=== PATIENT | female | born 1995 | race Caucasian/White ===

== ENCOUNTER → 2020-03-31 09:28 | Outpatient (BNVA) | payer OTHER, SELFPAY | PROVIDERS: Visit Provider Obstetrics & Gynecology | DX: Z34.90 Encounter for supervision of normal pregnancy, unspecified, unspecified trimester (principal) | CPT/HCPCS: 80053; 80307; 83036; 84315; 85027; 86592; 86762; 86803; 86850; 86900; 87340; 87806 ==

== ENCOUNTER → 2020-04-25 10:22 | Outpatient (BNVA) | payer OTHER, SELFPAY | PROVIDERS: Visit Provider Obstetrics & Gynecology | DX: Z34.01 Encounter for supervision of normal first pregnancy, first trimester (principal) | CPT/HCPCS: 84315; 87491; 87591; 88175 ==

== ENCOUNTER → 2020-06-06 15:49 | Outpatient (BNVA) | payer OTHER, SELFPAY | PROVIDERS: Visit Provider Obstetrics & Gynecology | DX: Z34.92 Encounter for supervision of normal pregnancy, unspecified, second trimester (principal) | CPT/HCPCS: 76805 ==

== ENCOUNTER → 2020-07-07 14:52 | Outpatient (BNVA) | payer OTHER, SELFPAY | PROVIDERS: Visit Provider Obstetrics & Gynecology | DX: Z34.02 Encounter for supervision of normal first pregnancy, second trimester (principal) | CPT/HCPCS: 82950; 84315 ==

== ENCOUNTER → 2020-08-04 13:50 | Outpatient (BNVA) | payer OTHER, SELFPAY | PROVIDERS: Visit Provider Obstetrics & Gynecology | DX: O26.892 Other specified pregnancy related conditions, second trimester; Z67.91 Unspecified blood type, Rh negative | CPT/HCPCS: 81000; 85027; 86850 ==

== ENCOUNTER → 2020-09-29 15:12 | Outpatient (BNVA) | payer OTHER, SELFPAY | PROVIDERS: Visit Provider Obstetrics & Gynecology | DX: Z34.03 Encounter for supervision of normal first pregnancy, third trimester (principal); Z67.91 Unspecified blood type, Rh negative | CPT/HCPCS: 84315; 87081 ==

== ENCOUNTER → 2020-10-18 11:24 | Outpatient (BNVA) | payer OTHER, SELFPAY | PROVIDERS: Visit Provider Obstetrics & Gynecology | DX: Z34.03 Encounter for supervision of normal first pregnancy, third trimester (principal); Z20.822 Contact with and (suspected) exposure to COVID-19 | CPT/HCPCS: 87635 ==

== ENCOUNTER 2020-10-25 16:40 | Inpatient (IN) | payer OTHER, SELFPAY ==
[2020-10-25] VITALS (11 sets, daily range): BP systolic 92–116; BP diastolic 53–64; PULSE 81–90; RESP 17; TEMP 36.3–36.5; BMI 31.7
[2020-10-25] MEDS: miSOPROStol 100 mcg tablet 25 MCG VAGINAL ×2 (18:41→22:40)
[2020-10-25 18:46] LABS: Basophils # 0.1 10^3/uL (0.0-0.1); Basophils % 0.4 %; Eosinophils # 0.3 10^3/uL (0.0-0.8); Eosinophils % 1.8 %; Hematocrit 34.3 % (37.0-47.0); Lymphocytes # 1.5 10^3/uL (0.8-4.8); Lymphocytes % 10.2 %; Mean Corpuscular HGB Conc 32.1 g/dL (30.0-36.0); Mean Corpuscular Volume 84.1 fL (81-99); Mean Platelet Volume 12.7 fL (7.4-10.4); Monocytes # 0.9 10^3/uL (0.2-0.9); Monocytes % 6.2 %; Neutrophils # 11.14 10^3/uL (1.8-7.7); Neutrophils % 77.3 %; Nucleated Red Blood Cells % 0 %; Platelet Count 168 10^3/cmm (130-400); Red Blood Count 4.08 10^6/uL (4.1-5.3); Red Cell Distribution Width 15.1 % (12.1-15.1); White Blood Count 14.4 10^3/uL (4.0-10.0)
[2020-10-26] VITALS (100 sets, daily range): BP systolic 84–133; BP diastolic 47–79; PULSE 75–116; RESP 16–19; TEMP 36.1–37.4; O2SAT 98–100
[2020-10-26] MEDS: hyDROXYzine 25 mg Capsule 50 MG PO (00:27)
[2020-10-26] MEDS: acetaminophen 325 mg Tablet 650 MG PO (00:27)
[2020-10-26] MEDS: fentaNYL 50 mcg/mL INJ 2mL IVP ×5 (02:49→07:48)
[2020-10-26] MEDS: dextrose 5%-lactated ringers 1,000 ML 125 ML IV ×2 (02:49→14:05)
[2020-10-26] MEDS: lactated ringers 1,000 ML 999 ML IV ×2 (06:50→08:00)
--- NOTE | 2020-10-26 08:00 | P.ANESASSM_ITS ---
Pre-Anesthetic Assessment Pre-Anesthetic Assessment: Height/Weight: Height 1.73 m Weight 94.801 kg Temp Pulse Resp BP Pulse Ox 97.2 F L 80 17 93/55 100 10/26/20 10:07 10/26/20 10:16 10/26/20 07:48 10/26/20 10:16 10/26/20 10:06 Preop Diagnosis: iup Proposed Procedure: epidural Familial anesthetic complications: none Was Beta Ac taken within 24 hours: N/A Was Clonidine taken within 24 hours: N/A Last intake: > 8 hrs Social: Social History: No alcohol and No tobacco Exam: Pre-Anes Outpt Exam: alert, oriented x 3, clear to auscultation bilaterally and regular rate & rhythm Airway: Cervical ROM: WNL MP: 1 Dentition: Full Anesthetic Plan: ASA status: 2 Anesthesia: Regional (specify below) Other: epidural Risk of > 500 ml blood loss (7ml/kg in children): No Meds/Allergies Current Medications: Current Medications Generic Name Dose Route Start Last Admin Trade Name Freq PRN Reason Stop Dose Admin Acetaminophen 650 mg 10/25/20 18:19 10/26/20 00:27 Acetaminophen 32 5 Mg Tablet PO 650 mg Q6H PRN Administration MILD TO MODERATE PAIN Fentanyl 25 - 100 mcg 10/25/20 18:19 10/26/20 07:48 Fentanyl 50 Mcg/ Ml Inj 2ml IVP 100 mcg Q1H PRN Administration SEVERE PAIN Hydroxyzine Pamoat e 50 mg 10/25/20 18:19 10/26/20 00:27 Hydroxyzine 25 M g Capsule PO 50 mg QID PRN Administration sleep, agitation or itching Dextrose/Lactated Ringer's 1,000 mls @ 125 m ls/hr 10/25/20 18:30 10/26/20 02:49 Dextrose 5%-Lact ated Ringers IV 125 mls/hr .Q8H TIANNA Administration Lactated Ringer's 1,000 mls @ 999 m ls/hr 10/25/20 18:19 10/26/20 08:55 Lactated Ringers IV 125 mls/hr .Q1H1M PRN Infusion Per L&D Rescitati on Protocol Ropivacaine 200 mg in 100 mls @ 13 mls/hr 10/26/20 06:00 10/26/20 08:30 Naropin Premix EPIDURAL 13 mls/hr .Q7H42M TIANNA Administration Lactated Ringer's 1,000 mls @ 999 m ls/hr 10/26/20 05:54 10/26/20 06:50 Lactated Ringers IV 999 mls/hr .Q1H1M PRN Administration See label comment s PFSH Anesthesia PFSH: Medical History No pertinent past medical history neghx:htn,dm,thyroid,dvt/pe,herpes denies past partner herpes hx Surgical History Hx of cataract surgery (~2017) L eye Family History Grandfather Diabetes Maternal Denies family history of Colon cancer Ovarian cancer Clotting disorder Heart disease Hypercholesteremia Breast cancer Bleeding disorder Hypertension Uterine cancer Thyroid disease Stroke Social History Additional social history: - Tobacco use: never Alcohol use: socially prior to Drug use: never Female Reproductive History: : 1 Data Anesthesia CBC & Chem 7: 10/25/20 17:15 Other Labs: Laboratory Results - last 48 hr 10/25/20 17:15 WBC 14.4 H RBC 4.08 L Hgb 11.0 L Hct 34.3 L MCV 84.1 MCH 27.0 L MCHC 32.1 RDW 15.1 Plt Count 168 MPV 12.7 H Neut % (Auto) 77.3 Lymph % (Auto) 10.2 [place] % (Auto) 6.2 Eos % (Auto) 1.8 Baso % (Auto) 0.4 Neut # (Auto) 11.14 H Lymph # (Auto) 1.5 [place] # (Auto) 0.9 Eos # (Auto) 0.3 Baso # (Auto) 0.1 Nucleated RBC % (auto) 0 Nucleated RBCs # 0.0 Cardiac Studies: No Data to Display
--- NOTE | 2020-10-26 10:24 | ANES.PROC ---
Anesthesia Procedures Procedure/Date: 10/26/20 Epidural: Time Out Performed: Yes Consents Signed: Procedure Consent and NPO Consent Consent: requested by attending/covering physician, from patient, risks and benefits reviewed and patient agrees to proceed Lumbar Level: L3-L4 Epidural position: sitting Epidural procedure: sterile prep of area, 1% lidocaine to numb the area, 18 g needle, negative for paresthesia passed, neg for paresthesia, test dose given, 1.5% xylocaine 1:200k epi (5 cc), 0.2% Ropivacaine bolus ml (5 cc), placed PCEA, no systemic response, sterile dressing applied, L.U.D. no apparent complications and 0.2% Ropiavacaine @ mls/hr (13)
[2020-10-26] MEDS: ondansetron 2 mg/ML SDV 2 mL 4 MG IVP (16:54)
--- NOTE | 2020-10-26 17:41 | P.PCNOB_ITS ---
Delivery Note: Date of delivery: October 26, 2020 Pre-delivery diagnoses: Term Post-delivery diagnoses: Term delivered Procedure: Spontaneous vaginal delivery Op report anesthesia: Epidural Delivering Physician: Mik Garcia MD Estimated blood loss (mL): 300 Findings: Baby girl, Apgars 8/9, weight 3785 g Pre-Delivery Course: Ms. Burger 25 y/o is a with a LMP of 01/18/2020 and QI of 10/24/2020 which places her at 40 weeks gestation on admission for elective induction, who has been receiving care from [facility]. HPI: Received appropriate care. Started with daily vitamins since start of care. labs have all been normal, including negative for HIV. She was found to negative for Group B Strep from screening at 36 weeks. She has gained approximately 20 kg throughout the . She denies a history of HTN during . Glucose tolerance screening for gestational diabetes was negative. Delivery: The patient was noted to be complete and pushing, so was placed in the dorsal lithotomy position, prepped and draped in the usual sterile fashion for a vaginal delivery. Pt. Noted to have epidural anesthesia. At 1733 the patient delivered a viable full-term female weighing 3785 g with scores of 8 and 9 at one and five minutes, respectively. The vertex was delivered spontaneously over an intact perineum. The patient was asked to push and the head delivered spontaneously in the YURIY position, over an intact perineum. A nuchal cord was checked and none noted. The anterior shoulder delivered easily and the posterior shoulder followed. The remainder of the infant was easily delivered and the oropharynx and nasopharynx was bulb suctioned. The was noted to have spontaneous cry and spontaneous movement of all four extremities. The cord was clamped x 2 and cut and noted to have 2 arteries and one vein. The was passed to the mother's abdomen where nursing personnel were in attendance. Cord blood sample was then obtained. The placenta delivered intact spontaneously and the uterus was explored. 20 units of Pitocin was placed in the IV bag to firm the uterus. Examination of the cervix and vaginal vault did not reveal any lacerations. A vaginal pack was then placed. Examination of the perineum showed no lacerations. The vaginal pack was then removed. The patient tolerated this procedure well, and recovered in L&D with her infant in her L&D room. All sponge and needle counts were correct. Post-Delivery Status: Good and stable Coding Level of Care Code Acute Epitaxial Reactor Operator for Ayden Tsai
[2020-10-26] MEDS: HYDROcodone-acetaminophen 5-325 mg Tablet PO (19:30)
[2020-10-26] MEDS: docusate sodium 100 mg Capsule PO (19:31)
[2020-10-26] MEDS: ibuprofen 800 mg tablet PO (21:04)
[2020-10-27] VITALS (12 sets, daily range): BP systolic 106–122; BP diastolic 55–72; PULSE 77–92; RESP 16–17; TEMP 36.1–36.8; O2SAT 99
[2020-10-27 06:02] LABS: Hematocrit 30.8 % (37.0-47.0); Hemoglobin 9.9 g/dL (11.5-15.3); Mean Corpuscular HGB Conc 32.1 g/dL (30.0-36.0); Mean Corpuscular Hemoglobin 27.1 pg (28.0-34.0); Mean Corpuscular Volume 84.4 fL (81-99); Mean Platelet Volume 12.3 fL (7.4-10.4); Platelet Count 152 10^3/cmm (130-400); Red Blood Count 3.65 10^6/uL (4.1-5.3)
[2020-10-27] MEDS: docusate sodium 100 mg Capsule PO (09:32)
[2020-10-27] MEDS: ibuprofen 800 mg tablet PO ×2 (09:32→16:31)
[2020-10-27] MEDS: prenatal vitamin Capsule 1 CAP PO (09:32)
--- NOTE | 2020-10-27 16:02 | PM.OBGYDC ---
Discharge Providers STUNNER ANIMAL Date of Admission: 10/25/20 16:40 Date of Discharge: 10/27/20 Attending Provider at Admission: Mik Garcia MD Attending Provider at Discharge: Mik Garcia MD Diagnoses at Discharge Discharge Diagnosis (1) Rh negative status during in second trimester, antepartum: Status: Acute (2) , supervision, normal, first: Status: Acute Qualifiers: Trimester: third trimester Qualified Code(s): Z34.03 - Encounter for supervision of normal first , third trimester Reason for Visit Reason for Visit: POST BOB INDUCTION Hospital Course Hospital Course Ms. Burger 25 y/o is a with a LMP of 01/18/2020 and QI of 10/24/2020 which places her at 40 weeks gestation on admission for elective induction, who has been receiving care from [facility] [place] [facility]. Received appropriate care. Started with daily vitamins since start of care. labs have all been normal, including negative for HIV. She was found to negative for Group B Strep from screening at 36 weeks. She has gained approximately 20 kg throughout the . She denies a history of HTN during . Glucose tolerance screening for gestational diabetes was negative. She progressed to have a spontaneous vaginal delivery with epidural anesthesia. She delivered a viable full-term female weighing 3785 g with scores of 8 and 9. recovery has been uneventful. Tolerating diet well. Ambulating without difficulty. Urine output adequate. Breast-feeding without problems. She plans to start using progesterone only contraceptive pill to continue breast-feeding. Information Peripartum Data: Delivery Method: Vaginal Physical Exam Narrative: EXAM NARRATIVE: GA; alert and oriented x 3 HEENT: normal Breasts: engorged Nipples - skin intact Lungs; clear to auscultation Heart: regular rhythm, no murmurs. Abd: Appropriately tender. BS+. Uterine fundus below umbilicus. No Fundal Tenderness. Perineum: normal lochia. Extremities: no edema, no cyanosis, no tenderness. Urinary Catheter Management^: Guillen: Cath Placed During This Visit: yes, but has since been removed by the nurse Reason for Continuing Indwelling Catheter: Decision to DC Catheter Urinary Catheter Date of Insertion: 10/26/20 Urinary Catheter Time of Insertion: 08:39 Date Urinary Catheter Removed: 10/26/20 Time Urinary Catheter Discontinued: 14:10 Discharge Data Data Completed and Pending: Pending at discharge Category Date Time Status Complete Crossmat ch Routine Lab 10/25/20 17:15 Results Rho D Immune Glob ulin Routine Lab 10/25/20 17:15 Results Type and Screen R outine Lab 10/25/20 17:15 Results Labs from last 24 hours 10/27/20 10/27/20 10/25/20 05:30 05:30 17:15 WBC 17.0 H RBC 3.65 L Hgb 9.9 L Hct 30.8 L MCV 84.4 MCH 27.1 L MCHC 32.1 RDW 15.0 Plt Count 152 MPV 12.3 H Blood Type O Negative Rho(D) Type Negative / 0 Antibody Screen Negative Antibody Identific ation Cancelled Screen Negative Cancelled Vitals: Last Vital Signs Temp 97.9 F 10/27/20 09:31 Pulse 80 10/27/20 11:40 Resp 17 10/27/20 09:35 BP 120/68 10/27/20 11:40 Pulse Ox 100 10/26/20 10:06 Discharge Plan Discharge Patient Disposition: Home Condition: Stable Prescriptions: New acetaminophen 325 mg capsule 325 mg PO Q4H PRN (Reason: fever or pain) Qty: 60 RF: 0 ibuprofen 800 mg tablet 800 mg PO TID PRN (Reason: pain) Qty: 60 RF: 0 docusate sodium [Colace] 100 mg capsule 100 mg PO BID Qty: 60 RF: 0 Continued prenat.vits,caleb,cxa-urqt-vczhi Tablet 1 tab PO DAILY RF: 0 ferrous sulfate 325 mg (65 mg iron) tablet 325 mg PO DAILY RF: 0 Discharge Orders: Discharge Order (Routine); Ordered 10/27/20 Ordered By: Mik Garcia Referrals: Mik Garcia MD [Physician] - 6 Weeks Discharge Diet: Usual diet Discharge Activity: Increase activity as tolerated Patient Instructions: Opioid Safety, Vaginal Delivery (DC), Vaginal Delivery (GEN) Activity Restrictions/Additional Instructions: 1. Please call [facility] [place] [facility] on next working day to make your appointment in 6 weeks. 2. Please stay home until you come back to the clinic on first post-operative check up. 3. Please follow instructions on your medications CAREFULLY. 4. If you have abdominal incision, do not cover it unless dressing is necessary because of drainage. OK to shower, but avoid bath. Leave steri-strips until they fall off. If they are still on one week after surgery, you may remove them. 5. If you had vaginal surgery or vaginal repair, Dr. Garcia may instruct you to take SITZ bath. 6. Yellow, blood tinged odorous vaginal discharge is usually normal after hysterectomy or vaginal surgeries. 7. No sexual intercourse, tampons, or douches until you are completely released from the post-operative care. 8. Avoid constipation by eating right and maybe using some Metamucil or Milk of Magnesia. 9. All prescription refills are given during the working hours. Please do no wait till it runs out. Call the clinic at [phone] before your medication runs out. The clinic will get in touch with your doctor to prescribe medications if necessary. 10. Please remain within 40 mile radius from our hospital because emergencies do happen now and then during the post-operative period. 11. If you have stairs at home, take one step at a time slowly and minimize the number of trips. It helps to stay in one floor for the next few days. No lifting except what you can lift by one hand until you are released from the post-operative care. 12. Driving is discouraged until you are well healed. It may be 3-4 weeks before you feel strong enough to drive. You should be able to turn and look through the rear window without pain and you should be able to push the brake pedal very hard without pain before you drive. No fast rules, but SAFETY should be your primary concern. DO NOT drive if you are on sedating medications such as narcotics. 13. Call the clinic (during working hours) to make urgent appointment or go to the Emergency room, if any of the following occurs: i. Vaginal bleeding becomes heavy, more than a period. ii. Incision becomes red and sore, or drains pus. iii. Your temperature is over 100.4 or you have chill. iv. IV site becomes red and swollen (a little ``knot?? is usually OK) v. Persistent nausea and vomiting vi. Persistent constipation or diarrhea vii. Rash or allergic reaction to medications. Discharge Attestations STUNNER ANIMAL Time Spent in Discharge Care*: greater than 30 min Coding Level of Care Code Acute [employer] Tin Roller for Chg Fwd Diagnoses Rh negative status during in second trimester, antepartum O26.892; Z67.91 , supervision, normal, first Z34.03 Trimester: third trimester
== END 2020-10-27 19:30 | disposition home or self-care (01) | DRG 807 ==
PROVIDERS: Admitting Provider Obstetrics & Gynecology; Visit Provider Obstetrics & Gynecology
DX: O36.0930 Maternal care for other rhesus isoimmunization, third trimester, not applicable or unspecified (principal); Z37.0 Single live birth; Z3A.40 40 weeks gestation of pregnancy
CPT/HCPCS: 36415; 36430; 51702; 59025; 59409; 80048; 85025; 85027; 85460; 86850; 86900; 90384; J2405; J2795; J3010

== ENCOUNTER → 2021-12-18 10:46 | Outpatient (BNVA) | payer OTHER, BC, SELFPAY | PROVIDERS: PCP Nurse Practitioner Family; Visit Provider Obstetrics & Gynecology | DX: N89.8 Other specified noninflammatory disorders of vagina (principal); N73.0 Acute parametritis and pelvic cellulitis; Z01.419 Encounter for gynecological examination (general) (routine) without abnormal findings; N73.9 Female pelvic inflammatory disease, unspecified | CPT/HCPCS: 87491; 87591 ==

== ENCOUNTER → 2023-02-26 08:42 | Outpatient (BNVA) | payer BC, SELFPAY | PROVIDERS: PCP Nurse Practitioner Family; Visit Provider Nurse Practitioner Women's Health | DX: Z36.87 Encounter for antenatal screening for uncertain dates (principal) | CPT/HCPCS: 76801 ==

== ENCOUNTER → 2023-03-21 15:27 | Outpatient (BNVA) | payer BC, SELFPAY | PROVIDERS: PCP Nurse Practitioner Family; Visit Provider Obstetrics & Gynecology | DX: Z34.80 Encounter for supervision of other normal pregnancy, unspecified trimester (principal); Z67.91 Unspecified blood type, Rh negative; E04.1 Nontoxic single thyroid nodule | CPT/HCPCS: 80307; 84315; 85027; 86592; 86762; 86803; 86850; 86900; 87086; 87340; 87491; 87591; 87806; 88175 ==

== ENCOUNTER → 2023-05-21 09:23 | Outpatient (BNVA) | payer BC, SELFPAY | PROVIDERS: PCP Nurse Practitioner Family; Visit Provider Obstetrics & Gynecology | DX: Z34.80 Encounter for supervision of other normal pregnancy, unspecified trimester (principal) | CPT/HCPCS: 76805 ==

== ENCOUNTER → 2023-06-17 13:21 | Outpatient (BNVA) | payer SELFPAY | PROVIDERS: PCP Nurse Practitioner Family; Visit Provider Nurse Practitioner Women's Health | DX: Z34.80 Encounter for supervision of other normal pregnancy, unspecified trimester (principal) | CPT/HCPCS: 76816; 82950; 84315 ==

== ENCOUNTER → 2023-07-14 11:16 | Outpatient (BNVA) | payer SELFPAY | PROVIDERS: PCP Nurse Practitioner Family; Visit Provider Obstetrics & Gynecology | DX: Z34.80 Encounter for supervision of other normal pregnancy, unspecified trimester (principal); G90.A Postural orthostatic tachycardia syndrome [POTS]; Z67.91 Unspecified blood type, Rh negative | CPT/HCPCS: 84315; 85025; 86850 ==

== ENCOUNTER → 2023-08-26 08:36 | Outpatient (BNVA) | payer BC, SELFPAY | PROVIDERS: PCP Nurse Practitioner Family; Visit Provider Nurse Practitioner Women's Health | DX: Z34.80 Encounter for supervision of other normal pregnancy, unspecified trimester (principal) | CPT/HCPCS: 84315; 87086 ==

== ENCOUNTER → 2023-09-09 09:40 | Outpatient (BNVA) | payer BC, SELFPAY | PROVIDERS: PCP Nurse Practitioner Family; Visit Provider Nurse Practitioner Women's Health | DX: Z34.83 Encounter for supervision of other normal pregnancy, third trimester (principal) | CPT/HCPCS: 76816 ==

== ENCOUNTER → 2023-09-12 08:51 | Outpatient (BNVA) | payer BC, SELFPAY | PROVIDERS: PCP Nurse Practitioner Family; Visit Provider Obstetrics & Gynecology | DX: Z34.80 Encounter for supervision of other normal pregnancy, unspecified trimester (principal) | CPT/HCPCS: 84315; 87081 ==

== ENCOUNTER 2023-10-06 03:11 | Inpatient (IN) | payer BC, SELFPAY ==
[2023-10-05] VITALS (43 sets, daily range): BP systolic 92–133; BP diastolic 50–77; PULSE 83–104; RESP 20; TEMP 35.7–35.8; O2SAT 100; BMI 31.0
[2023-10-05 18:51] LABS: Basophils # 0.1 10^3/uL (0.0-0.1); Basophils % 0.4 %; Eosinophils # 0.2 10^3/uL (0.0-0.8); Eosinophils % 1.2 %; Hematocrit 31.5 % (36-47); Lymphocytes # 1.8 10^3/uL (0.8-4.8); Lymphocytes % 12.6 %; Mean Corpuscular HGB Conc 30.8 g/dL (30-55); Mean Corpuscular Hemoglobin 23.5 pg (27-33); Mean Corpuscular Volume 76.3 fl (85-98); Mean Platelet Volume 11.3 fL (7.4-10.4); Monocytes % 6.9 %; Neutrophils % 74.5 %; Nucleated Red Blood Cells % 0.3 %; Platelet Count 169 10^3/cmm (157-399); Red Blood Count 4.13 10^6/uL (3.85-5.65); Red Cell Distribution Width 17.5 % (12.1-15.1); White Blood Count 14.21 10^3/uL (3.29-11.43)
[2023-10-05] MEDS: fentaNYL 50 mcg/mL INJ 2mL IVP (18:54)
[2023-10-05] MEDS: lactated ringers 1,000 ML 999 ML IV ×2 (19:05→20:03)
--- NOTE | 2023-10-05 20:06 | P.ANESASSM_ITS ---
Pre-Anesthetic Assessment Height/Weight: Height 1.73 m Weight 92.533 kg Temp Pulse Resp BP Pulse Ox O2 Del Method 96.4 F L 94 20 H 131/73 100 Room Air 10/05/23 19:28 10/05/23 20:02 10/05/23 18:54 10/05/23 20:00 10/05/23 20:02 10/05/23 19:21 Preop Diagnosis: labor pain epidural Was Beta Ac taken within 24 hours: N/A Was Clonidine taken within 24 hours: N/A Exam alert, oriented x 3, clear to auscultation bilaterally and regular rate & rhythm Airway Submandibular: within normal limits Cervical ROM: within normal limits Mallampati: Class II Dentition: full Pulmonary None reported CV/HEM None reported None reported Hepatic None reported GI Gastroesophageal Reflux Disease Metabolic None reported Musc/skel None reported Neuropsych None reported Anesthetic Plan ASA status: 2 Anesthesia: Regional (specify below) Risk of > 500 ml blood loss (7ml/kg in children): No Medications/Allergies Home Medications Medication Instructions Recorded Confirmed Last Taken Type prenat.vits,caleb,sjn-qych-pklgl 1 tab PO DAILY 02/19/23 10/05/23 1 Day Ago History ~10/04/23 Allergies Allergy/AdvReac Type Severity Reaction Status Date / Time No Known Allergies Allergy Verified 10/05/23 18:27 Current Medications Generic Name Dose Route Start Last Admin Trade Name Freq PRN Reason Stop Dose Admin Fentanyl 25 - 100 mcg 10/05/23 18:39 10/05/23 18:54 Fentanyl 50 Mcg/Ml Inj 2ml IVP 25 mcg Q1H PRN Administration SEVERE PAIN Lactated Ringer's 1,000 mls @ 999 mls/hr 10/05/23 18:41 10/05/23 20:03 Lactated Ringers IV 999 mls/hr .Q1H1M PRN Administration See label comments PFSH Anesthesia Medical History POTS (postural orthostatic tachycardia syndrome) No pertinent past medical history neghx:htn,dm,thyroid,dvt/pe,herpes denies past partner herpes hx Surgical History Hx of cataract surgery (~2016) L eye Family History Grandfather Diabetes Maternal Denies family history of Colon cancer Ovarian cancer Clotting disorder Heart disease Hypercholesteremia Breast cancer Bleeding disorder Hypertension Uterine cancer Thyroid disease Stroke Female Reproductive History : 2 Data Anesthesia 10/05/23 18:35 Short CBC 10/05/23 Range/Units 18:35 WBC 14.21 H (3.29-11.43) 10^3/uL Hgb 9.70 L (11.27-16.99) g/dL Hct 31.5 L (36-47) % MCV 76.3 L (85-98) fl Plt Count 169 (157-399) 10^3/cmm Neut % (Auto) 74.5 % Neut # (Auto) 10.60 H (1.8-7.7) 10^3/uL Blood Bank 10/05/23 18:35 Blood Type O Negative Rho(D) Type Rh negative Cardiac Studies: 2 No Data to Display
[2023-10-05] MEDS: ROPivacaine premix 200 MG/100 ML PREMIX 10 MG EPIDURAL (20:30)
--- NOTE | 2023-10-05 20:39 | P.ANES_ITS ---
Anesthesia Procedures Procedure/Date: 10/05/23 epidural Procedure Narrative: epidural complete, bolus given, epidural pump initiated with OPERATIONS SUPPORT COORDINATOR education given, vitals taken during procedure and satisfactory throughout, patient admits to decrease pain, report of procedure to OB RN Epidural: Time Out Performed: Yes Consents Signed: Procedure Consent Consent: requested by attending/covering physician, from patient, risks and benefits reviewed and patient agrees to proceed Lumbar Level: L3-L4 Ep idural position: sitting Epidural procedure: sterile prep of area, 1% lidocaine to numb the area (3 mL), 18 g needle, negative for paresthesia passed, neg for paresthesia, test dose given, 1.5% xylocaine 1:200k epi (5 mL), 0.2% Ropivacaine bolus ml (5 mL), placed PCEA, no systemic response, sterile dressing applied, L.U.D. no apparent complications and 0.2% Ropiavacaine @ mls/hr (13 mL/hr)
[2023-10-05] MEDS: dextrose 5%-lactated ringers 1,000 ML 125 ML IV (21:16)
[2023-10-06] VITALS (63 sets, daily range): BP systolic 99–200; BP diastolic 53–126; PULSE 83–147; RESP 18; TEMP 36–36.9; O2SAT 77–98
[2023-10-06] MEDS: ondansetron 2 mg/ML SDV 2 mL 4 MG IVP (01:29)
[2023-10-06] MEDS: ROPivacaine premix 200 MG/100 ML PREMIX 10 MG EPIDURAL (01:51)
[2023-10-06] MEDS: oxytocin 30 UNIT/500 ML BAG 600 UNIT IV (03:42)
--- NOTE | 2023-10-06 04:05 | P.HP_ITS ---
Providers/Chief Complaint 2 Admitting Physician: Mp Anderson MD Primary RANGE ECOLOGIST: Mik Garcia MD Primary Care Provider: DIANA Mancilla Chief Complaint: Ctx HPI RANGE ECOLOGIST History of Present Illness Eufemia Burger is a 28 year old female G2 P EDC October 04, 2023 at 40 w 1 d presented with painful regular uterine contractions no bleeding or fluid leakage + active movements Present Details : 2 Para: 1 Labs Rubella: Immune RPR: Negative GBS: Negative Medications/Allergies Home Medications Medication Instructions Recorded Confirmed Last Taken Type prenat.vits,caleb,dxj-mnjp-axbia 1 tab PO DAILY 02/19/23 10/05/23 1 Day Ago History ~10/04/23 Allergies Allergy/AdvReac Type Severity Reaction Status Date / Time No Known Allergies Allergy Verified 10/05/23 18:27 PFSH RANGE ECOLOGIST 2 PFSH: Medical History POTS (postural orthostatic tachycardia syndrome) No pertinent past medical history neghx:htn,dm,thyroid,dvt/pe,herpes denies past partner herpes hx Surgical History Hx of cataract surgery (~2016) L eye Family History Grandfather Diabetes Maternal Denies family history of Colon cancer Ovarian cancer Clotting disorder Heart disease Hypercholesteremia Breast cancer Bleeding disorder Hypertension Uterine cancer Thyroid disease Stroke Other Female Reproductive History: Hx Age of Menarche: 13 History History History 2 2 Term 1 0 Miscarriages/Ectopic 0 Living Children 1 Care QI Calculator 2 Estimated Delivery Date Method Current WG Current Estimate 10/04/23 LMP (Certain) 40w 2d Other Estimates 10/04/23 Ultrasound #1 40w 2d Specific Issues/Plans * RH NEGATIVE ---Rhogam given 07/28/2023 per Dorene CASIANO * POTS Vitals/I&O/Wt Last Vital Signs Temp 97.0 F L 10/06/23 03:47 Pulse 139 H 10/06/23 04:06 Resp 20 H 10/05/23 18:54 BP 123/56 10/06/23 04:03 Pulse Ox 91 10/06/23 04:06 O2 Del Method Room Air 10/05/23 19:21 10/05/23 10/05/23 10/06/23 14:59 22:59 06:59 Intake Total 965.7 / 965.7 100 / 1065.7 Balance 965.7 / 965.7 100 / 1065.7 Weight last 48 hrs Weight 204 lb Physical Exam 2 Narrative: awake, alert VS normal Lungs: clear Cor: RRR Abd: soft Cervix: 3-4 cm / 100 / -2 / posterior Ext: normal External monitor: regular UCs heart tracing good variability, + accelerations Urinary Catheter Management: Guillen: Cath Placed During This Visit: yes Urinary Catheter Date of Insertion: 10/05/23 Urinary Catheter Time of Insertion: 21:05 Data 10/05/23 18:35 Results Labs OB ([facility]): 2 Obstetrics 09/09/23 Blood Type O Negative 10/05/23 Antibody Screen Negative 10/05/23 Hct 31.5 % (36-47) L 10/05/23 Hgb 9.70 g/dL (11.27-16.99) L 10/05/23 Rho(D) Type Rh negative 10/05/23 Plt Count 169 10^3/cmm (157-399) 10/05/23 Hep Bs Antigen Non-reactive (Nonreactive) 03/21/23 Hepatitis C Antibody Non-reactive (Nonreactive) 03/21/23 Rubella IgG Antibody 22.0 IU/mL (0.0-10.0) H 03/21/23 RPR Nonreactive (Nonreactive) 03/21/23 HIV 1&2 Ab & HIV 1 Ag Non-reactive (Non-Reactiv) 03/21/23 C.trachomatis RNA (TMA) Not detected (NOT DETECTED) N.gonorrhoeae RNA (TMA) Not detected (NOT DETECTED) T. vaginalis Amp RNA Not detected (NOT DETECTED) 03/21/23 Chlamydia/GC Comment See note 03/21/23 Cystic Fibrosis Screen Negative 04/25/20 Glucose 1 Hr 50 gm 130 mg/dL (85-140) 07/07/20 Gest Glucose Tolerance 120 mg/dL (70-139) 06/17/23 Hemoglobin A1c 4.9 % (4.0-6.0) 03/31/20 Urine Opiates Screen Negative ng/mL (Negative) 03/21/23 Ur Barbiturates Screen Negative ng/mL (Negative) 03/21/23 Ur Phencyclidine Scrn Negative ng/mL (Negative) 03/21/23 Ur Amphetamines Screen Negative ng/mL (Negative) 03/21/23 U Benzodiazepines Scrn Negative ng/mL (Negative) 03/21/23 Urine Cocaine Screen Negative ng/mL (Negative) 03/21/23 U Marijuana (THC) Screen Negative ng/mL (Negative) 03/21/23 Micro Urine Specimen 08/26/23 Pap Smear Interpret See note 03/21/23 A&P Assessment and plan (1) Supervision of other normal : 40 w 1 d active labor fetus reassuring plan admit expectant management GBS negative (2) Rh D negative blood type: Attestations 2 Medical Necessity Statement*: patient at 40 w 1 d, with active labor Coding Level of Care Code Acute Code for Chg Fwd Diagnoses Supervision of other normal Z34.80 Rh D negative blood type Z67.91 Time Spent (min) 30
--- NOTE | 2023-10-06 04:15 | PM.DELIVERY ---
Delivery Note: Date of delivery: October 06, 2023 Pre-delivery diagnoses: 40 w 1 d active labor Post-delivery diagnoses: 40 w 1 d active labor vaginal delivery Procedure: vaginal delivery Op report anesthesia: Epidural Delivering Physician: Mp Anderson MD Estimated blood loss (mL): 300 Findings: , vigorous male infant normal placenta and cord cord gases and blood obtained no episiotomy / lacerations EBL: 300 cc no complications Pre-Delivery Course: normal labor course Delivery: vaginal Post-Delivery Status: good History History History 2 Term 1 0 Miscarriages/Ectopic 0 Living Children 1 A&P Assessment and plan (1) Vaginal delivery: Coding Level of Care Code Acute Code for Chg Fwd Diagnoses Vaginal delivery O80 Time Spent (min) 60
[2023-10-06] MEDS: acetaminophen 325 mg Tablet 650 MG PO (05:20)
[2023-10-06] MEDS: ibuprofen 800 mg tablet PO ×2 (10:17→15:09)
[2023-10-06] MEDS: docusate sodium 100 mg Capsule PO (10:17)
[2023-10-06] MEDS: PRENATAL VIT NO.130/IRON/FOLIC 1 EACH TABLET PO (10:17)
--- NOTE | 2023-10-06 12:39 | ANE.PACU2 ---
Inpatient post-anesthesia follow up: Airway intact: Yes Vital signs: Temperature 97.3 F Pulse Rate 93 Respiratory Rate 20 Blood Pressure 120/61 Pulse Oximetry 87 Oxygen Delivery Me thod Room Air Oxygen Flow Rate Fraction of Inspir ed Oxygen Hydration adequate: Yes Nausea and vomiting: No Pain level: 1 Mental status: Baseline Epidural Start/End: Epidural Start Date: 10/05/23 Epidural Start Time: 20:21 Epidural End Date: 10/06/23 Epidural End Time: 05:42
--- NOTE | 2023-10-06 12:45 | P.PN_ITS ---
CALENDERER Subjective 2 Subjective: Interval history: Baby is being transferred to [place] for respiratory problems Patient would like to be discharged to go with baby no c/o no bleeding, pain eating, voiding, ambulating well caring for without any problems Labor: Station: +1 Amniotic Membrane Status: Ruptured Monitor Mode: External Contraction Pattern: Regular Vitals/I&O/Wt Last Vital Signs Temp 98.0 F 10/06/23 16:00 Pulse 85 10/06/23 16:00 Resp 18 10/06/23 16:00 BP 117/74 10/06/23 16:00 Pulse Ox 98 10/06/23 16:00 O2 Del Method Room Air 10/06/23 16:00 Physical Exam 2 Narrative: afebrile, VS normal comfortable, awake, alert Abd: soft, nontender. fundus firm Ext: no edema; nontender Urinary Catheter Management: Guillen: Cath Placed During This Visit: yes, but has since been removed by the nurse Reason for Continuing Indwelling Catheter: Decision to DC Catheter Urinary Catheter Date of Insertion: 10/05/23 Urinary Catheter Time of Insertion: 21:05 Date Urinary Catheter Removed: 10/06/23 Time Urinary Catheter Discontinued: 03:14 Data 10/06/23 13:25 A&P Assessment and plan (1) Vaginal delivery: PPD #0 doing well discharge to home today instructions and precautions given call/return if fever, chills, headache, blurry vision, nausea, vomiting, abdominal pain; vaginal bleeding or discharge; shortness of breath, chest pain, leg pains or swelling; inability to void, perineal pain or swelling; feelings of depression or mood changes; thoughts of suicide or harming others; inability to care for baby. f/u in 6 weeks or PRN Attestations 2 Medical Necessity Statement*: patient s/p vaginal delivery, plan discharge to home today Coding Level of Care Code Acute Code for Chg Fwd Diagnoses Vaginal delivery O80 Time Spent (min) 20
--- NOTE | 2023-10-06 12:50 | PM.OBGYDC ---
Discharge Providers MEDICAL GENETICIST Date of Admission: 10/06/23 03:11 Date of Discharge: 10/06/23 Attending Provider at Admission: Mp Anderson MD Attending Provider at Discharge: Mp Anderson MD Consults: none Primary MEDICAL GENETICIST: Mik Garcia MD Primary Care Provider: DIANA Mancilla Diagnoses at Discharge Discharge Diagnosis (1) Vaginal delivery: Details from hospital stay: 28 y.o. at 40 w 1 d presented with active labor normal labor course with heart tracing reassuring throughout patient delivered vaginally without any complications Baby was transferred to [place] for respiratory difficulties patient requested to be discharged to be with baby patient was discharged to home on October 06, 2023 Status: Acute Reason for Visit Reason for Visit: Ctx Brief History: 28 y.o. at 40 w 1 d presented with active labor Hospital Course Hospital Course 28 y.o. at 40 w 1 d presented with active labor normal labor course with heart tracing reassuring throughout patient delivered vaginally without any complications Baby was transferred to [place] for respiratory difficulties patient requested to be discharged to be with baby patient was discharged to home on October 06, 2023 Information Peripartum Data: Delivery Method: Vaginal Laceration description: None Episiotomy description: None complications: none Physical Exam Narrative: afebrile, VS normal comfortable, awake, alert Abd: soft, nontender. fundus firm Ext: no edema; nontender Urinary Catheter Management: Guillen: Cath Placed During This Visit: yes, but has since been removed by the nurse Reason for Continuing Indwelling Catheter: Decision to DC Catheter Urinary Catheter Date of Insertion: 10/05/23 Urinary Catheter Time of Insertion: 21:05 Date Urinary Catheter Removed: 10/06/23 Time Urinary Catheter Discontinued: 03:14 History History History 2 Term 1 0 Miscarriages/Ectopic 0 Living Children 1 Discharge Data Studies Completed and Pending Laboratory Results WBC 17.01 10^3/uL (3.29-11.43) H 10/06/23 13:25 RBC 3.76 10^6/uL (3.85-5.65) L 10/06/23 13:25 Hgb 8.60 g/dL (11.27-16.99) L 10/06/23 13:25 Hct 28.7 % (36-47) L 10/06/23 13:25 MCV 76.3 fl (85-98) L 10/06/23 13:25 MCH 22.9 pg (27-33) L 10/06/23 13:25 MCHC 30.0 g/dL (30-55) 10/06/23 13:25 RDW 17.5 % (12.1-15.1) H 10/06/23 13:25 Plt Count 155 10^3/cmm (157-399) L 10/06/23 13:25 MPV 11.0 fL (7.4-10.4) H 10/06/23 13:25 Neut % (Auto) 74.5 % 10/05/23 18:35 Lymph % (Auto) 12.6 % 10/05/23 18:35 [place] % (Auto) 6.9 % 10/05/23 18:35 Eos % (Auto) 1.2 % 10/05/23 18:35 Baso % (Auto) 0.4 % 10/05/23 18:35 Neut # (Auto) 10.60 10^3/uL (1.8-7.7) H 10/05/23 18:35 Lymph # (Auto) 1.8 10^3/uL (0.8-4.8) 10/05/23 18:35 [place] # (Auto) 1.0 10^3/uL (0.2-0.9) H 10/05/23 18:35 Eos # (Auto) 0.2 10^3/uL (0.0-0.8) 10/05/23 18:35 Baso # (Auto) 0.1 10^3/uL (0.0-0.1) 10/05/23 18:35 Nucleated RBC % (auto) 0.3 % 10/05/23 18:35 Nucleated RBCs # 0.0 /100WBC 10/05/23 18:35 Blood Type O Negative 10/05/23 18:35 Rho(D) Type Rh negative 10/05/23 18:35 Antibody Screen Negative 10/05/23 18:35 Screen Negative (Negative) 10/06/23 13:25 Procedures Performed vaginal delivery Vitals Last Vital Signs Temp 98.0 F 10/06/23 16:00 Pulse 85 10/06/23 16:00 Resp 18 10/06/23 16:00 BP 117/74 10/06/23 16:00 Pulse Ox 98 10/06/23 16:00 O2 Del Method Room Air 10/06/23 16:00 Results Labs OB ([facility]): Obstetrics US 09/09/23 Blood Type O Negative 10/05/23 Antibody Screen Negative 10/05/23 Hct 28.7 % (36-47) L 10/06/23 Hgb 8.60 g/dL (11.27-16.99) L 10/06/23 Rho(D) Type Rh negative 10/05/23 Plt Count 155 10^3/cmm (157-399) L 10/06/23 Hep Bs Antigen Non-reactive (Nonreactive) 03/21/23 Hepatitis C Antibody Non-reactive (Nonreactive) 03/21/23 Rubella IgG Antibody 22.0 IU/mL (0.0-10.0) H 03/21/23 RPR Nonreactive (Nonreactive) 03/21/23 HIV 1&2 Ab & HIV 1 Ag Non-reactive (Non-Reactiv) 03/21/23 C.trachomatis RNA (TMA) Not detected (NOT DETECTED) 03/21/23 N.gonorrhoeae RNA (TMA) Not detected (NOT DETECTED) 03/21/23 T. vaginalis Amp RNA Not detected (NOT DETECTED) 03/21/23 Chlamydia/GC Comment See note 03/21/23 Cystic Fibrosis Screen Negative 04/25/20 Glucose 1 Hr 50 gm 130 mg/dL (85-140) 07/07/20 Gest Glucose Tolerance 120 mg/dL (70-139) 06/17/23 Hemoglobin A1c 4.9 % (4.0-6.0) 03/31/20 Urine Opiates Screen Negative ng/mL (Negative) 03/21/23 Ur Barbiturates Screen Negative ng/mL (Negative) 03/21/23 Ur Phencyclidine Scrn Negative ng/mL (Negative) 03/21/23 Ur Amphetamines Screen Negative ng/mL (Negative) 03/21/23 U Benzodiazepines Scrn Negative ng/mL (Negative) 03/21/23 Urine Cocaine Screen Negative ng/mL (Negative) 03/21/23 U Marijuana (THC) Screen Negative ng/mL (Negative) 03/21/23 Micro Urine Specimen 08/26/23 Pap Smear Interpret See note 03/21/23 Discharge Plan Discharge Patient Disposition: Home Condition: Stable Prescriptions: Continued prenat.vits,caleb,[id number] Tablet 1 tab PO DAILY Discharge Orders: Discharge Order (Routine); Ordered 10/06/23 Ordered By: Mp Anderson Referrals: Mik Garcia MD [Physician] - 6 Weeks ([facility]ease call clinic to make 6 week follow up appointment) Discharge Diet: Usual diet Discharge Activity: Increase activity as tolerated Patient Instructions: Depression (DC), Expression, Collection and Storage of Breast Milk (DC), How to Increase Your Milk Supply (DC), Bleeding (DC), Preeclampsia and Eclampsia After Delivery (GEN), Breast Care for the Mother (DC), OB Discharge Report, OB Food/Drug Interaction Guide, OB Care at Home, OB Home Care, Abnormal Bleeding Discharge Attestations MEDICAL GENETICIST Time Spent in Discharge Care*: less than 30 min Coding Level of Care Code Acute Code for Chg Fwd Diagnoses Vaginal delivery O80 Time Spent (min) 20
[2023-10-06 13:35] LABS: Hematocrit 28.7 % (36-47); Mean Corpuscular Hemoglobin 22.9 pg (27-33); Mean Corpuscular Volume 76.3 fl (85-98); Platelet Count 155 10^3/cmm (157-399); Red Blood Count 3.76 10^6/uL (3.85-5.65); Red Cell Distribution Width 17.5 % (12.1-15.1); White Blood Count 17.01 10^3/uL (3.29-11.43)
== END 2023-10-06 16:00 | disposition home or self-care (01) | DRG 806 ==
LOC: OPOB 10-07 05:09 → OBGYN 10-07 05:10
PROVIDERS: Admitting Provider Obstetrics & Gynecology; PCP Nurse Practitioner Family; Visit Provider Obstetrics & Gynecology
DX: O48.0 Post-term pregnancy (principal); O36.0130 Maternal care for anti-D [Rh] antibodies, third trimester, not applicable or unspecified; Z37.0 Single live birth; Z3A.40 40 weeks gestation of pregnancy
CPT/HCPCS: 51702; 59409; 85025; 85027; 85460; 86850; 86900; 90384; 96374; J2405; J2590; J2795; J3010; J7120; J7121